=== PATIENT | female | born 1955 | race Caucasian/White ===

== ENCOUNTER 2017-05-10 18:58 | Emergency (ER) | payer BC ==
--- NOTE | 2017-05-10 19:08 | UC ---
Lower Extremity/Ankle HPI - HPI Summary HPI Summary: 61 year old female presents with complains of right heel pain. - History of Current Complaint Stated Complaint: RT FOOT PAIN Time Seen by Provider: 05/10/17 19:07 - Allergies/Home Medications Allergies/Adverse Reactions: Allergies Allergy/AdvReac Type Severity Reaction Status Date / Time No Known Allergies Allergy Verified 05/10/17 19:09 Home Medications: Home Medications Aspirin Low Dose CHEW TAB* [Aspirin Low Dose TAB*] 81 mg PO DAILY 05/10/17 [ History Confirmed 05/10/17] Atorvastatin* [Lipitor 20 MG*] 60 mg PO 1700 05/10/17 [History Confirmed ] Carisoprodol TAB* [Soma TAB*] 350 mg PO BID 05/10/17 [History Confirmed ] Clopidogrel TAB* [Plavix TAB*] 75 mg PO DAILY 05/10/17 [History Confirmed ] Evening [place] [employer] [Evening [place] [employer] 500 mg] 500 mg PO DAILY 05/10/17 [ History Confirmed 05/10/17] Gabapentin CAP(*) [Neurontin 300 CAP(*)] 300 mg PO TID 05/10/17 [History Confirmed 05/10/17] Lisinopril TAB* [Prinivil TAB 10 MG*] 10 mg PO DAILY 05/10/17 [History Confirmed 05/10/17] PMH/Surg Hx/FS Hx/Imm Hx - Surgical History Surgical History: Yes Surgery Procedure, Year, and Place: right hip replacement. decompression right shoulder. bilat carpal tunnel. pain blocks/back & neck. lithotripsy. bladder bx benign - Social History Alcohol Use: Occasionally Alcohol Amount: glass of wine a week Substance Use Type: None Smoking Status (MU): Never Smoked Tobacco - Immunization History Most Recent Influenza Vaccination: 07/2015 Review of Systems Constitutional: Negative Skin: Negative Eyes: Negative ENT: Negative Respiratory: Negative Cardiovascular: Negative Gastrointestinal: Negative Genitourinary: Negative Motor: Negative Neurovascular: Negative Musculoskeletal: Other: - right heel pain Neurological: Negative Psychological: Negative All Other Systems Reviewed And Are Negative: Yes Physical Exam Triage Information Reviewed: Yes Eye Exam: Normal ENT Exam: Normal Dental Exam: Normal Neck exam: Normal Neck: Positive: 1 Respiratory Exam: Normal Cardiovascular Exam: Normal Abdominal Exam: Normal Musculoskeletal: Positive: Other: - right heel pain Neurological Exam: Normal Psychological Exam: Normal Skin Exam: Normal Lower Extremity Course/Dx - Differential Dx/Diagnosis Provider Diagnoses: right heel pain Discharge - Discharge Plan Condition: Stable Disposition: HOME Prescriptions: Methylprednisolone [Medrol Dosepak 4 MG*] 4 mg PO .SEE LEFTY INSTRUCTION #21 tab Patient Education Materials: Plantar Fasciitis (ED), Heel Spur (ED), Plantar Fasciitis Exercises (ED) Referrals: Iva Simon MD [Primary Care Provider] - Chauncey Ng DPM [Doctor of Podiatric Medicine] -
[2017-05-10 19:09] VITALS: BP 153/78
--- NOTE | 2017-05-10 19:38 | RAD ---
Indication: RIGHT foot pain/heel pain. Pain with ambulation and flexion and extension. Comparison: No relevant prior exams available on the [facility] PACS for comparison. Technique: 4 views of the RIGHT hindfoot were obtained. Report: Negative for fracture or articular malalignment. Negative for significant articular arthropathic change. Small plantar fascia origin bone spur. Unremarkable soft tissue contours. IMPRESSION: Small plantar fascia origin heel spur without additional finding. Correlate for potential plantar fasciitis.
== END 2017-05-10 19:45 | disposition home or self-care (01) ==
LOC: UCCORT 18:58
DX: M79.671 Pain in right foot (principal); Z96.641 Presence of right artificial hip joint
CPT/HCPCS: 99212; G0463

== ENCOUNTER 2018-02-15 12:55 | Emergency (ER) | payer BC, OTHER ==
[2018-02-15 14:34] VITALS: BP 134/84
--- NOTE | 2018-02-15 14:59 | RAD ---
HISTORY: Left foot trauma, pain COMPARISONS: None VIEWS: 3, Frontal, lateral, and oblique views of the left foot FINDINGS: BONE DENSITY: Normal. BONES: There is no displaced fracture. There is a plantar calcaneal enthesophyte. JOINTS: There is mild osteoarthritis of the first MTP joint. ALIGNMENT: There is hallux valgus. SOFT TISSUES: Unremarkable. OTHER FINDINGS: None. IMPRESSION: 1. HALLUX VALGUS WITH MILD OSTEOARTHRITIS OF THE FIRST MTP JOINT. 2. NO ACUTE OSSEOUS INJURY. IF SYMPTOMS PERSIST, RECOMMEND REPEAT IMAGING
--- NOTE | 2018-02-15 15:29 | UC ---
Lower Extremity/Ankle HPI - HPI Summary HPI Summary: PT WAS AT WORK TODAY WHEN A 50LB STACK OF WINDOW CASINGS FELL DIRECTLY ON HER LEFT FOOT. HAS PAIN WITH AMBULATING. PRESSURE FROM HER SHOE CAUSES PAIN. OCCURRED ABOUT 10:15AM. - History of Current Complaint Chief Complaint: UCLowerExtremity Stated Complaint: FOOT (R) INJURY - W/C Time Seen by Provider: 02/15/18 15:06 Hx Obtained From: Patient Onset/Duration: Sudden Onset, Lasting Hours, Still Present Severity Initially: Moderate Severity Currently: Moderate Pain Intensity: 8 Pain Scale Used: 0-10 Numeric Aggravating Factor(s): Standing, Ambulation Alleviating Factor(s): Rest, Elevation Able to Bear Weight: Yes - Allergies/Home Medications Allergies/Adverse Reactions: Allergies Allergy/AdvReac Type Severity Reaction Status Date / Time No Known Allergies Allergy Verified 02/15/18 14:29 Home Medications: Home Medications Ubidecarenone [Co Q-10] 100 mg PO DAILY 02/15/18 [History Confirmed 02/15/18] PMH/Surg Hx/FS Hx/Imm Hx - Additional Past Medical History Additional PMH: FIBROMYALGIA, RA Endocrine History: Dyslipidemia Cardiovascular History: Cardiac Disease, Hypertension - Surgical History Surgical History: Yes Surgery Procedure, Year, and Place: right hip replacement. decompression right shoulder. bilat carpal tunnel. pain blocks/back & neck. lithotripsy. bladder bx benign - Family History Known Family History: Positive: Cardiac Disease, Hypertension - Social History Alcohol Use: Occasionally Alcohol Amount: glass of wine a week Substance Use Type: None Smoking Status (MU): Never Smoked Tobacco - Immunization History Most Recent Influenza Vaccination: 07/2015 Review of Systems Constitutional: Negative Skin: Negative Respiratory: Negative Cardiovascular: Negative Gastrointestinal: Negative Musculoskeletal: Arthralgia All Other Systems Reviewed And Are Negative: Yes Physical Exam Triage Information Reviewed: Yes Appearance: Well-Appearing, No Pain Distress, Well-Nourished Vital Signs: Initial Vital Signs Temp 97.6 F 02/15/18 14:25 Pulse 78 02/15/18 14:25 Resp 16 02/15/18 14:25 BP 134/84 02/15/18 14:25 Pulse Ox 98 02/15/18 14:25 Vital Signs Reviewed: Yes Eyes: Positive: Conjunctiva Clear ENT: Positive: Hearing grossly normal Neck: Positive: Supple Respiratory: Positive: No respiratory distress, No accessory muscle use Cardiovascular: Positive: Pulses Normal Abdomen Description: Positive: Soft Musculoskeletal: Positive: No Edema, Other: - TTP LEFT FOOT DORSAL ASPECT Neurological: Positive: Alert Psychological: Positive: Age Appropriate Behavior Skin: Negative: rashes Diagnostics - Radiology LEFT FOOT XRAY Xray Interpretation: No Acute Changes Radiology Interpretation Completed By: Radiologist Lower Extremity Course/Dx - Differential Dx/Diagnosis Provider Diagnoses: LEFT FOOT CONTUSION Discharge - Sign-Out/Discharge Documenting (check all that apply): Discharge/Admit/Transfer - Discharge Plan Condition: Stable Disposition: HOME Patient Education Materials: Foot Contusion (ED) Forms: *Gen. Provider Communication Referrals: Iva Simon MD [Primary Care Provider] - If Needed Additional Instructions: XRAY TODAY UNREMARKABLE FOR FRACTURE. POST-OP SHOE FOR DISCOMFORT. PRICILA WRAP FOR COMPRESSION AND SUPPORT. YOUR SYMPTOMS SHOULD IMPROVE SIGNIFICANTLY OVER THE NEXT 1-2 WEEKS. IF YOU DO NOT IMPROVE EXPECTED FOLLOW-UP WITH YOUR PCP. YOU MAY BENEFIT FROM REPEAT IMAGING AT THAT TIME. OTC IBUPROFEN OR ALEVE NEEDED FOR DISCOMFORT. - Billing Disposition and Condition Condition: STABLE Disposition: HOME
== END 2018-02-15 15:30 | disposition home or self-care (01) ==
LOC: UCCORT 12:55
DX: S90.31XA Contusion of right foot, initial encounter (principal); W20.8XXA Other cause of strike by thrown, projected or falling object, initial encounter; Y93.9 Activity, unspecified; Y92.9 Unspecified place or not applicable; Y99.0 Civilian activity done for income or pay
CPT/HCPCS: 99213; G0463

== ENCOUNTER 2018-05-03 19:28 | Emergency (ER) | payer BC, OTHER ==
[2018-05-03 19:47] VITALS: BP 139/77
--- NOTE | 2018-05-03 19:58 | UC ---
Hand/Wrist HPI - HPI Summary HPI Summary: right hand pain x 3 days no know injury , pain is on the dorsum of right hand, it is shooting / sharp / burning radiating to the tip of middle finger and up to the forearm , worse with certain hand movement, better with rest and not moving the hand - History Of Current Complaint Chief Complaint: UCUpperExtremity Stated Complaint: RT HAND CONCERN Time Seen by Provider: 05/03/18 19:45 Hx Obtained From: Patient Onset/Duration: Gradual Onset, Lasting Days - 3, Still Present Severity Initially: Moderate Severity Currently: Moderate Pain Intensity: 9 Character Of Pain: Sharp, Burning Aggravating Factor(s): Movement Alleviating Factor(s): Rest Associated Signs And Symptoms: Negative: Swelling, Redness, Bruising, Fever, Weakness, Numbness/Tingling - Allergies/Home Medications Allergies/Adverse Reactions: Allergies Allergy/AdvReac Type Severity Reaction Status Date / Time ibuprofen Allergy See Comment Verified 05/03/18 19:47 Home Medications: Home Medications Nitroglycerin [Nitrostat] 0.4 mg SL SEE INSTRUCTIONS PRN 05/03/18 [History Confirmed 05/03/18] PMH/Surg Hx/FS Hx/Imm Hx - Additional Past Medical History Additional PMH: chronic back pain Cardiovascular History: Cardiac Disease, Hypertension - Surgical History Surgical History: Yes Surgery Procedure, Year, and Place: right hip replacement. decompression right shoulder. bilat carpal tunnel. pain blocks/back & neck. lithotripsy. bladder bx benign - Family History Known Family History: Positive: Cardiac Disease, Hypertension - Social History Alcohol Use: Occasionally Alcohol Amount: glass of wine a week Substance Use Type: None Smoking Status (MU): Never Smoked Tobacco - Immunization History Most Recent Influenza Vaccination: 07/2015 Review of Systems Constitutional: Negative Skin: Negative Eyes: Negative ENT: Negative Respiratory: Negative Cardiovascular: Negative Is Patient Immunocompromised?: No All Other Systems Reviewed And Are Negative: Yes Physical Exam Triage Information Reviewed: Yes Appearance: Well-Appearing, No Pain Distress, Well-Nourished Vital Signs: Initial Vital Signs Temp 98.7 F 05/03/18 19:45 Pulse 91 05/03/18 19:45 Resp 15 05/03/18 19:45 BP 139/77 05/03/18 19:45 Pulse Ox 99 05/03/18 19:45 Vital Signs Reviewed: Yes Eyes: Positive: Conjunctiva Clear ENT: Positive: Normal ENT inspection, Hearing grossly normal, Pharynx normal Neck exam: Normal Respiratory: Positive: Chest non-tender, Lungs clear, Normal breath sounds, No respiratory distress Cardiovascular: Positive: RRR, No Murmur, Pulses Normal Musculoskeletal: Positive: Other: - right hand: no swelling, no erythema, + tenderness dosal 3th metacarpal , good ROM , normal strength Hand/Wrist Course/Dx - Differential Dx/Diagnosis Provider Diagnoses: parsthesia right hand Discharge - Sign-Out/Discharge Documenting (check all that apply): Patient Departure - Discharge Plan Condition: Stable Disposition: HOME Patient Education Materials: Paresthesia (ED) Referrals: Iva Simon MD [Primary Care Provider] - 7 Days Additional Instructions: right hand pain most likely due to nerve pain / pinched nerve cont. with rest, limit the use of your right hand , take Tylenol or ibuprofen as needed for pain follow up with your pcp in 7 days if not better - Billing Disposition and Condition Condition: STABLE Disposition: Home
== END 2018-05-03 19:58 | disposition home or self-care (01) ==
LOC: UCCORT 19:28
DX: R20.0 Anesthesia of skin (principal); I10 Essential (primary) hypertension
CPT/HCPCS: 99211; G0463

== ENCOUNTER 2018-06-27 19:02 | Emergency (ER) | payer BC ==
[2018-06-27 20:50] VITALS: BP 153/86
--- NOTE | 2018-06-27 22:11 | UC ---
Shoulder Pain HPI - HPI Summary HPI Summary: The patient is a 62-year-old female that presents here 2 weeks after falling on her left side. She complains of left shoulder pain and left lower lateral chest pain. He has no shortness of breath. She denies any neck pain or headache or abdominal pain. She has pain when she lifts her left arm and when she externally rotates her arm. - History of Current Complaint Chief Complaint: UCUpperExtremity Stated Complaint: LEFT SHOULDER COMP. Time Seen by Provider: 06/27/18 21:27 Hx Obtained From: Patient Onset/Duration: Sudden Onset Timing: Constant Severity Initially: Severe Severity Currently: Moderate Pain Intensity: 4 - 8 WITH MOVEMENT Pain Scale Used: 0-10 Numeric Character: Sharp, Aching Aggravating Factor(s): Movement, External Rotation, Abduction Alleviating Factor(s): Rest, Ice Related History: Dominant Hand Right - Allergies/Home Medications Allergies/Adverse Reactions: Allergies Allergy/AdvReac Type Severity Reaction Status Date / Time ibuprofen Allergy See Comment Verified 06/27/18 20:42 PMH/Surg Hx/FS Hx/Imm Hx Previously Healthy: Yes Endocrine History: Dyslipidemia Cardiovascular History: Cardiac Disease, Hypertension - Surgical History Surgical History: Yes Surgery Procedure, Year, and Place: right hip replacement. decompression right shoulder. bilat carpal tunnel. pain blocks/back & neck. lithotripsy. bladder bx benign - Family History Known Family History: Positive: Cardiac Disease, Hypertension - Social History Alcohol Use: Occasionally Alcohol Amount: glass of wine a week Substance Use Type: None Smoking Status (MU): Never Smoked Tobacco - Immunization History Most Recent Influenza Vaccination: 07/2015 Review of Systems Constitutional: Negative Skin: Negative Eyes: Negative ENT: Negative Respiratory: Negative Cardiovascular: Negative Gastrointestinal: Negative Genitourinary: Negative Motor: Negative Neurovascular: Negative Musculoskeletal: Arthralgia Neurological: Negative Psychological: Negative Is Patient Immunocompromised?: No All Other Systems Reviewed And Are Negative: Yes Physical Exam Triage Information Reviewed: Yes Appearance: Well-Appearing, No Pain Distress, Well-Nourished Vital Signs: Initial Vital Signs Temp 97.9 F 06/27/18 20:43 Pulse 82 06/27/18 20:43 Resp 17 06/27/18 20:43 BP 153/86 06/27/18 20:43 Pulse Ox 100 06/27/18 20:43 Vital Signs Reviewed: Yes Eyes: Positive: Conjunctiva Clear ENT: Negative: Hearing grossly normal, Nasal congestion, Nasal drainage, Trismus , Muffled voice, Hoarse voice Neck: Positive: Supple, Nontender Respiratory: Positive: Normal breath sounds, No respiratory distress, No accessory muscle use. Negative: Chest non-tender - SEE IMAGE Cardiovascular: Positive: RRR, No Murmur Musculoskeletal: Positive: ROM Limited @ - LEFT SHOULDER Neurological: Positive: Alert Psychological Exam: Normal Diagnostics - Laboratory Diagnostic Studies Completed/Ordered: POX 100% ON ROOM AIR COMMENT: NORMAL/NOT HYPOXIC - Radiology No standard instances Xray Interpretation: No Acute Changes - nad CXR, NO FX LEFT SHOULDER Shoulder Course/Dx - Differential Dx/Diagnosis Provider Diagnoses: LEFT RIB CONTUSIONS/? FX. LEFT SHOULDER INJURY- SUSPECT PARTIAL ROTATOR CUFF TEAR Discharge - Sign-Out/Discharge Documenting (check all that apply): Patient Departure All imaging exams completed and their final reports reviewed: No - Discharge Plan Condition: Stable Disposition: HOME Patient Education Materials: Rotator Cuff Injury (ED), Rib Contusion (ED) Referrals: Iva Simon MD [Primary Care Provider] - Keith Walter MD [Medical Doctor] - As Soon As Possible Additional Instructions: THE OFFICIAL XR READINGS ARE PENDING PLEASE CALL TOMORROW LATE MORNING FOR OFFICIAL REPORT SLING FOR COMFORT WHEN UP ICE I SUGGEST YOU FOLLOW UP WITH AN ORTHOPEDIST ABOUT YOUR SHOULDER - Billing Disposition and Condition Condition: STABLE Disposition: Home Images Front/Back of Body, Lg ([place]): 1 - TENDER HERE 2 - TENDER PROX HUMERUS. TRISHA TO ABDUCT TO 80 DEGREES, PAIN WITH EXTERNAL ROTATION
--- NOTE | 2018-06-28 07:48 | RAD ---
HISTORY: injury (2 weeks ago) COMPARISONS: None VIEWS: 4 , Frontal internal rotation, external rotation, outlet, and axillary views of the left shoulder FINDINGS: BONE DENSITY: Normal. BONES: There is no displaced fracture. JOINTS: There is osteoarthritis of the AC joint. ALIGNMENT: There is no dislocation. SOFT TISSUES: Unremarkable. OTHER FINDINGS: None. IMPRESSION: NO ACUTE OSSEOUS INJURY. IF SYMPTOMS PERSIST, RECOMMEND REPEAT IMAGING. R0
--- NOTE | 2018-06-28 07:50 | RAD ---
INDICATION: Chest injury. COMPARISON: Comparison is made with a prior chest x-ray study from October 15, 2014. TECHNIQUE: Dual-energy PA and lateral views of the chest were obtained. FINDINGS: The heart is within normal limits in size. Mediastinal and hilar contours appear within normal limits. The lungs are clear. No pleural effusion or pneumothorax is seen. IMPRESSION: NO EVIDENCE FOR ACTIVE CARDIOPULMONARY DISEASE. R0
--- NOTE | 2018-06-28 14:43 | UC ---
- Progress Note Progress Note: I CALLED AND SPOKE TO THE PATIENT. NAME AND DATE OF VERIFIED. ADVISED THAT SHOULDER AND CHEST X-RAYS BOTH UNREMARKABLE. PATIENT FOLLOWED UP WITH DR. WALTER WITH ORTHOPEDICS TODAY AND WILL BE SEEING HIM AGAIN IN ONE MONTH. - SHO LOZADA MD. Discharge - Sign-Out/Discharge Documenting (check all that apply): Post-Discharge Follow Up All imaging exams completed and their final reports reviewed: Yes - Discharge Plan Condition: Stable Disposition: HOME Patient Education Materials: Rotator Cuff Injury (ED), Rib Contusion (ED) Referrals: Keith Walter MD [Medical Doctor] - As Soon As Possible Iva Simon MD [Primary Care Provider] - Additional Instructions: THE OFFICIAL XR READINGS ARE PENDING PLEASE CALL TOMORROW LATE MORNING FOR OFFICIAL REPORT SLING FOR COMFORT WHEN UP ICE I SUGGEST YOU FOLLOW UP WITH AN ORTHOPEDIST ABOUT YOUR SHOULDER - Billing Disposition and Condition Condition: STABLE Disposition: Home
== END 2018-06-27 22:17 | disposition home or self-care (01) ==
LOC: UCCORT 19:02
DX: S20.20XA Contusion of thorax, unspecified, initial encounter (principal); S49.92XA Unspecified injury of left shoulder and upper arm, initial encounter; W19.XXXA Unspecified fall, initial encounter; Y93.9 Activity, unspecified; Y92.9 Unspecified place or not applicable; I10 Essential (primary) hypertension; Z88.5 Allergy status to narcotic agent
CPT/HCPCS: 71046; 99212; G0463